=== PATIENT | male | born 2000 | race Caucasian/White ===

== ENCOUNTER 2021-12-06 08:08 | Outpatient (CLI) | payer BC ==
[2021-12-06] VITALS (19 sets, daily range): BP systolic 66–158; BP diastolic 29–87
== END 2021-12-06 23:59 | disposition home or self-care (01) ==
LOC: CARD DIAG 08:08
PROVIDERS: ATTEND Internal Medicine Interventional Cardiology
DX: R42 Dizziness and giddiness (principal); R55 Syncope and collapse
CPT/HCPCS: 93660